=== PATIENT | male | born 1990 | race Caucasian/White ===

== ENCOUNTER 2017-09-03 17:16 | Emergency (ER) | payer SELFPAY ==
[~2017-09-03] VITALS: Ht 177.8 cm; Wt 75.0 kg
[2017-09-03] MEDS ORDERED: TETANUS, DIPHTHERIA, PERTUSSIS VAC/PF 0.5ML (>7YR OLD) IM ONE (18:45)
[2017-09-03] MEDS ORDERED: ACETAMINOPHEN 325MG TABLET PO ONE (18:45)
[2017-09-03] MEDS ORDERED: BACITRACIN ZINC OINT UDPKT TOP ONE (20:45)
[2017-09-03 21:41] VITALS: BP 128/55
== END 2017-09-03 22:44 | disposition home or self-care (01) ==
LOC: ER 17:50
DX: S93.401A Sprain of unspecified ligament of right ankle, initial encounter (principal); S63.502A Unspecified sprain of left wrist, initial encounter; M62.838 Other muscle spasm; V49.40XA Driver injured in collision with unspecified motor vehicles in traffic accident, initial encounter; Y93.89 Activity, other specified; Y92.410 Unspecified street and highway as the place of occurrence of the external cause
CPT/HCPCS: 73110; 73610; 73630; 90471; 90715; 99284; Z7610